=== PATIENT | female | born 1980 | race Two or more races ===

== ENCOUNTER 2019-08-12 18:00 | Inpatient (IN) | payer SELFPAY ==
[~2019-08-12] VITALS: Ht 152.4 cm; Wt 66.0 kg
[2019-08-12] MEDS ORDERED: IBUPROFEN 600 MG TAB PO ONE (18:15)
[2019-08-12 18:42] LABS: Hematocrit 30.6 % (36.0-46.0); Hemoglobin 10.4 g/dL (12.2-16.2); Mean Corpuscular Hemoglobin 31.5 pg (28.0-32.0); Mean Corpuscular Hgb Conc. 33.9 g/dL (32.0-36.0); Mean Corpuscular Volume 92.9 fL (80.0-100.0); Platelet Count (auto) 201 10^3/uL (140-450); Red Cell Distribution Width 13.1 % (11.8-14.3)
[2019-08-12 18:46] LABS: Basophils % (manual) 0 (0.0-2.0); Blast Cells 0; Eosinophils % (manual) 0 (0-7); Metamyelocytes % 0; Myelocytes % 0; Promyelocytes % 0; Reactive Lymphocytes 0
[2019-08-12 18:57] LABS: Albumin 2.3 g/dL (3.4-5.0); Blood Urea Nitrogen 48 mg/dL (7-18); Calcium 7.9 mg/dL (8.5-10.1); Chloride 96 mmol/L (98-107); Potassium 4.1 mmol/L (3.5-5.1); Sodium 127 mmol/L (136-145)
[2019-08-12 18:59] LABS: Alanine Aminotransferase 16 U/L (13-56); Anion Gap 13 (5-15); Aspartate Aminotransferase 19 U/L (15-37); BUN/Creatinine Ratio 8.6; Carbon Dioxide 18 mmol/L (21-32); GFR African American 11 mL/min; GFR Non-African American 9 mL/min; Glucose 115 mg/dL (74-106)
[2019-08-12 19:04] LABS: Alkaline Phosphatase 101 U/L (45-117); Bilirubin, Total 0.5 mg/dL (0.2-1.0); Total Protein 7.1 g/dL (6.4-8.2)
[2019-08-12 19:22] LABS: Band Neutrophils % (manual) 7; Lymphocytes % (manual) 3 (10.0-50.0); Monocytes % (manual) 5 (0-12)
[2019-08-12 20:20] LABS: Urine Bacteria NONE SEEN /hpf (None Seen); Urine Blood 2+ /uL (Negative); Urine Specific Gravity 1.018 (1.001-1.035); Urine WBC 3056 /hpf (0 - 5)
[2019-08-12] MEDS ORDERED: SODIUM CHLORIDE 0.9% 1,000 ML IV ONE ×2 (20:45→21:45)
[2019-08-12] MEDS ORDERED: MORPHINE SULF INJ 2 MG/ML SYRINGE 1ML IV ONE (21:45)
[2019-08-12] MEDS ORDERED: ONDANSETRON HCL 4 MG/2 ML VIAL IV ONE (21:45)
[2019-08-12] MEDS ORDERED: cefTRIAXone 1GM/50ML D5W 50 ML IV ONE (22:30)
[2019-08-12] MEDS ORDERED: VANCOMYCIN 1GM/250ML 250 ML IV ONE (22:30)
[2019-08-12] MEDS: SODIUM CHLORIDE 0.9% 1,000 ML IV SCH (23:45)
[2019-08-12] MEDS ORDERED: MORPHINE SULFATE 4 MG/ML SYR/VIAL IV PRN (23:45)
[2019-08-12] MEDS ORDERED: ACETAMINOPHEN 500 MG TAB PO PRN (23:45)
[2019-08-13 05:00] VITALS: BP 106/66
[2019-08-13] MEDS: SODIUM CHLORIDE 0.9% 1,000 ML IV SCH ×3 (05:12→20:20)
[2019-08-13 05:58] LABS: Basophils # (auto) 0 uL; Basophils % (auto) 0.1 % (0.0-2.0); Eosinophils # (auto) 0.5 uL; Eosinophils % (auto) 4.4 % (0.0-7.0); Hematocrit 28.4 % (36.0-46.0); Hemoglobin 9.5 g/dL (12.2-16.2); Lymphocytes # (auto) 0.6 uL; Mean Corpuscular Hemoglobin 32.2 pg (28.0-32.0); Mean Corpuscular Hgb Conc. 33.5 g/dL (32.0-36.0); Mean Corpuscular Volume 96.1 fL (80.0-100.0); Monocytes # (auto) 0.4 uL; Monocytes % (auto) 3.8 % (0.0-12.0); Neutrophils # (auto) 10.2 uL; Neutrophils % (auto) 86.7 % (37.0-80.0); Platelet Count (auto) 170 10^3/uL (140-450); Red Blood Cells 2.95 10^6/uL (4.0-5.20); Red Cell Distribution Width 13.3 % (11.8-14.3); White Blood Cell 11.8 10^3/uL (4.4-10.8)
[2019-08-13 06:25] LABS: Potassium 3.3 mmol/L (3.5-5.1)
[2019-08-13 06:32] LABS: Albumin 1.8 g/dL (3.4-5.0); BUN/Creatinine Ratio 10.1; Calcium 6.9 mg/dL (8.5-10.1)
[2019-08-13 06:36] LABS: Bilirubin, Total 0.5 mg/dL (0.2-1.0); Total Protein 5.9 g/dL (6.4-8.2)
[2019-08-13 09:00] VITALS: BP 120/63
[2019-08-13] MEDS: traMADol HCL 50 MG TAB PO PRN ×3 (09:57→22:42)
[2019-08-13] MEDS: ONDANSETRON HCL 4 MG/2 ML VIAL IV PRN ×3 (09:57→22:42)
[2019-08-13] MEDS: POTASSIUM CHL 20MEQ/100ML 100 ML IV SCH ×2 (12:40→15:37)
[2019-08-13 13:00] VITALS: BP 102/58
[2019-08-13] MEDS: ACETAMINOPHEN 325 MG TAB PO PRN (17:12)
[2019-08-13 17:31] VITALS: BP 135/81
[2019-08-13] MEDS ORDERED: PIPERACILLIN-TAZOB 3.375GM 100 ML IV ONE (18:00)
[2019-08-13 21:30] VITALS: BP 101/62
[2019-08-13] MEDS ORDERED: cefTRIAXone 1GM/50ML D5W 50 ML IV SCH (22:00)
[2019-08-13] MEDS: FAMOTIDINE (10MG/ML) 2ML VL IV SCH (22:38)
[2019-08-14] MEDS: PIPERACILLIN-TAZOB 3.375GM 100 ML IV SCH ×2 (00:18→06:10)
[2019-08-14] MEDS: SODIUM CHLORIDE 0.9% 1,000 ML IV SCH ×4 (03:00→21:00)
[2019-08-14] MEDS: ACETAMINOPHEN 325 MG TAB PO PRN ×2 (05:24→17:20)
[2019-08-14 05:47] VITALS: BP 140/87
[2019-08-14 07:19] LABS: Hematocrit 30.4 % (36.0-46.0); Mean Corpuscular Hemoglobin 31.6 pg (28.0-32.0); Mean Corpuscular Volume 95.6 fL (80.0-100.0); Platelet Count (auto) 247 10^3/uL (140-450); Red Blood Cells 3.17 10^6/uL (4.0-5.20); Red Cell Distribution Width 13.4 % (11.8-14.3); White Blood Cell 13.5 10^3/uL (4.4-10.8)
[2019-08-14 07:24] LABS: Basophils % (manual) 0 (0.0-2.0); Blast Cells 0; Eosinophils % (manual) 0 (0-7); Metamyelocytes % 0; Myelocytes % 0; Promyelocytes % 0; Reactive Lymphocytes 0
[2019-08-14 07:25] LABS: BUN/Creatinine Ratio 13.3
[2019-08-14 07:39] LABS: Band Neutrophils % (manual) 15; Lymphocytes % (manual) 11 (10.0-50.0); Monocytes % (manual) 6 (0-12)
[2019-08-14 09:00] VITALS: BP 121/79
[2019-08-14] MEDS: ONDANSETRON HCL 4 MG/2 ML VIAL IV PRN ×2 (09:33→21:45)
[2019-08-14] MEDS: traMADol HCL 50 MG TAB PO PRN ×2 (09:33→21:45)
[2019-08-14] MEDS: FAMOTIDINE (10MG/ML) 2ML VL IV SCH ×2 (09:33→21:44)
[2019-08-14] MEDS: PIPERACILLIN-TAZOB 2.25GM 50 ML IV SCH ×3 (12:09→23:58)
[2019-08-14 13:00] VITALS: BP 114/79
[2019-08-14 17:00] VITALS: BP 134/73
[2019-08-14 22:00] VITALS: BP 102/69
[2019-08-15 04:43] VITALS: BP 139/84
[2019-08-15] MEDS: PIPERACILLIN-TAZOB 2.25GM 50 ML IV SCH ×4 (05:45→23:39)
[2019-08-15] MEDS: SODIUM CHLORIDE 0.9% 1,000 ML IV SCH ×2 (05:46→16:00)
[2019-08-15 05:49] LABS: Calcium 8.3 mg/dL (8.5-10.1); Potassium 3.9 mmol/L (3.5-5.1)
[2019-08-15 09:00] VITALS: BP 130/85
[2019-08-15] MEDS: FAMOTIDINE (10MG/ML) 2ML VL IV SCH ×2 (10:08→22:21)
[2019-08-15] MEDS: HEPARIN SODIUM (PORCINE) 5000 UNITS/ML 1ML VIAL SC SCH ×2 (11:00→22:20)
[2019-08-15] MEDS: SODIUM BICARBONATE 650 MG TAB PO SCH ×3 (11:58→22:21)
[2019-08-15] MEDS: traMADol HCL 50 MG TAB PO PRN ×2 (11:58→18:58)
[2019-08-15 13:00] VITALS: BP 130/84
[2019-08-15 16:20] LABS: Urine Bacteria FEW /hpf (None Seen); Urine Blood 1+ /uL (Negative); Urine WBC 6 /hpf (0 - 5)
[2019-08-15 16:59] VITALS: BP 140/93
[2019-08-15 22:00] VITALS: BP 132/84
[2019-08-16] MEDS: SODIUM CHLORIDE 0.9% 1,000 ML IV SCH ×2 (02:13→12:10)
[2019-08-16 05:00] VITALS: BP 127/82
[2019-08-16] MEDS: PIPERACILLIN-TAZOB 2.25GM 50 ML IV SCH ×3 (05:51→18:20)
[2019-08-16] MEDS: SODIUM BICARBONATE 650 MG TAB PO SCH ×4 (05:51→21:14)
[2019-08-16 05:53] LABS: Hematocrit 29.7 % (36.0-46.0); Hemoglobin 10.1 g/dL (12.2-16.2); Mean Corpuscular Hemoglobin 32.1 pg (28.0-32.0); Mean Corpuscular Volume 94.4 fL (80.0-100.0); Platelet Count (auto) 225 10^3/uL (140-450); Red Blood Cells 3.15 10^6/uL (4.0-5.20); Red Cell Distribution Width 13.5 % (11.8-14.3); White Blood Cell 9.3 10^3/uL (4.4-10.8)
[2019-08-16] MEDS: ACETAMINOPHEN 325 MG TAB PO PRN ×3 (06:01→18:20)
[2019-08-16 06:04] LABS: Basophils % (manual) 0 (0.0-2.0); Blast Cells 0; Metamyelocytes % 0; Myelocytes % 0; Promyelocytes % 0; Reactive Lymphocytes 0
[2019-08-16 06:05] LABS: Potassium 3.5 mmol/L (3.5-5.1)
[2019-08-16 06:20] LABS: Albumin 1.8 g/dL (3.4-5.0); BUN/Creatinine Ratio 18.2; Bilirubin, Total 0.5 mg/dL (0.2-1.0); Total Protein 6.2 g/dL (6.4-8.2)
[2019-08-16 07:03] LABS: Band Neutrophils % (manual) 12; Eosinophils % (manual) 1 (0-7); Lymphocytes % (manual) 18 (10.0-50.0); Monocytes % (manual) 5 (0-12)
[2019-08-16 08:00] VITALS: BP 118/77
[2019-08-16 08:43] VITALS: BP 118/77
[2019-08-16] MEDS: HEPARIN SODIUM (PORCINE) 5000 UNITS/ML 1ML VIAL SC SCH ×2 (11:03→21:15)
[2019-08-16] MEDS: FAMOTIDINE (10MG/ML) 2ML VL IV SCH ×2 (11:04→21:14)
[2019-08-16 13:00] VITALS: BP 118/77
[2019-08-16 16:50] VITALS: BP 132/88
[2019-08-16] MEDS: traMADol HCL 50 MG TAB PO PRN (19:54)
[2019-08-16 23:35] VITALS: BP_SYST 119; BP_SYST 127; BP_DIAS 81; BP_DIAS 84
[2019-08-17] MEDS: SODIUM CHLORIDE 0.9% 1,000 ML IV SCH (00:29)
[2019-08-17] MEDS: PIPERACILLIN-TAZOB 2.25GM 50 ML IV SCH ×2 (00:29→05:31)
[2019-08-17 05:00] VITALS: BP 130/70
[2019-08-17] MEDS: SODIUM BICARBONATE 650 MG TAB PO SCH ×4 (05:31→21:44)
[2019-08-17 05:57] LABS: Calcium 7.9 mg/dL (8.5-10.1); Potassium 3.7 mmol/L (3.5-5.1)
[2019-08-17 06:01] LABS: BUN/Creatinine Ratio 16.5
[2019-08-17 09:00] VITALS: BP 110/76
[2019-08-17 09:59] LABS: CRP High Sensitivity 13.2 mg/dL (< 0.3)
[2019-08-17] MEDS: HEPARIN SODIUM (PORCINE) 5000 UNITS/ML 1ML VIAL SC SCH ×2 (09:59→21:45)
[2019-08-17 11:25] LABS: INR 1.05 (0.9-1.15); Partial Thromboplastin Time 28.2 sec (23.64-32.05)
[2019-08-17 11:55] LABS: Urine Bacteria NONE SEEN /hpf (None Seen); Urine Blood 1+ /uL (Negative); Urine Specific Gravity 1.007 (1.001-1.035); Urine WBC 2 /hpf (0 - 5)
[2019-08-17] MEDS: ACETAMINOPHEN 325 MG TAB PO PRN (12:32)
[2019-08-17 13:04] VITALS: BP 118/71
[2019-08-17 16:49] VITALS: BP 120/75
[2019-08-17] MEDS: traMADol HCL 50 MG TAB PO PRN (21:44)
[2019-08-17 22:07] VITALS: BP 129/79
[2019-08-18 05:22] VITALS: BP 134/79
[2019-08-18] MEDS: SODIUM BICARBONATE 650 MG TAB PO SCH ×2 (05:42→12:00)
[2019-08-18 06:02] LABS: Potassium 3.7 mmol/L (3.5-5.1)
[2019-08-18 06:08] LABS: BUN/Creatinine Ratio 14.4; Calcium 7.8 mg/dL (8.5-10.1)
[2019-08-18 09:00] VITALS: BP_SYST 121; BP_SYST 133; BP_DIAS 73; BP_DIAS 79
[2019-08-18] MEDS ORDERED: cefTRIAXone 1GM/50ML D5W 50 ML IV SCH (09:00)
[2019-08-18] MEDS: HEPARIN SODIUM (PORCINE) 5000 UNITS/ML 1ML VIAL SC SCH (09:29)
[2019-08-18 11:15] VITALS: BP 133/79
== END 2019-08-18 12:25 | disposition home or self-care (01) | DRG 871 ==
LOC: ER 18:00 → WEST WING 18:01
PROVIDERS: ADMIT Internal Medicine; ATTEND Internal Medicine
DX: A41.9 Sepsis, unspecified organism (principal); N17.0 Acute kidney failure with tubular necrosis; E43 Unspecified severe protein-calorie malnutrition; N12 Tubulo-interstitial nephritis, not specified as acute or chronic; E87.1 Hypo-osmolality and hyponatremia; E87.2 Acidosis; R65.20 Severe sepsis without septic shock; R31.9 Hematuria, unspecified; E78.5 Hyperlipidemia, unspecified; Z80.3 Family history of malignant neoplasm of breast; Z83.3 Family history of diabetes mellitus; Z82.49 Family history of ischemic heart disease and other diseases of the circulatory system; Z79.899 Other long term (current) drug therapy
CPT/HCPCS: 36415; 74176; 76775; 80048; 80053; 80061; 81001; 82570; 83516; 83605; 84156; 84484; 85007; 85025; 85027; 85610; 85652; 85730; 86038; 86141; 86160; 86225; 86235; 87040; 87086; 96361; 96365; 96367; 96375; G0378; J0696; J2405; J2543; J3480; J3490